=== PATIENT | female | born 1945 | race Caucasian/White ===

== ENCOUNTER 2017-05-15 12:51 | Emergency (ER) | payer MEDICARE, BC ==
[~2017-05-15] VITALS: Ht 170.2 cm; Wt 105.0 kg
[~2017-05-15 12:51] MED LIST: ASPI-119; BUPR150T5 PO; CARB1TAB52 PO; CARB25TA9 PO; CLON0.5T PO; FLUT250A INH; FLUT50SP EACH NARE; OMEGCAP PO; VENL75CA44 PO; VENL75TA PO
[2017-05-15 12:58] VITALS: BP 143/68; PULSE 96; RESP 18; TEMP 98.1; O2SAT 95
[2017-05-15] MEDS ORDERED: CARB25TA16 PO (13:20)
[2017-05-15] MEDS ORDERED: CLON0.5T PO (13:20)
[2017-05-15] MEDS ORDERED: FLUTI220I INH (13:20)
[2017-05-15] MEDS ORDERED: SPIR25TA PO (13:20)
--- NOTE | 2017-05-15 13:56 | RADRPT ---
EXAM DATE/TIME: 05/15/2017 13:19 [facility] COMPARISON: No previous studies available for comparison. INDICATIONS : Left thumb pain MEDICAL HISTORY : Parkinsons disease SURGICAL HISTORY : None. ENCOUNTER: Initial ACUITY: 1 day PAIN SCORE: 9/10 LOCATION: Left Thumb FINDINGS: Osseous structures appear intact without evidence for acute bony fracture. Mild soft tissue prominenc e overlying the first PIP joint. There is anatomic alignment on the single AP view of the first PIP j oint. Remaining views are essentially oblique views of this joint space. Remaining joint spaces are i ntact without significantnarrowing or erosive change. CONCLUSION: 1. Mild soft tissue prominence overlying the first PIP joint without acute fracture or dislocation. Lazaro Millard MD on May 15, 2017 at 13:50 Board Certified Radiologist. This report was verified electronically.
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
== END 2017-05-15 16:15 | disposition home or self-care (01) ==
LOC: PHEFT 12:51
DX: S60.012A Contusion of left thumb without damage to nail, initial encounter (principal); S00.93XA Contusion of unspecified part of head, initial encounter; Y04.2XXA Assault by strike against or bumped into by another person, initial encounter; I10 Essential (primary) hypertension; F32.9 Major depressive disorder, single episode, unspecified; K21.9 Gastro-esophageal reflux disease without esophagitis
CPT/HCPCS: 70450; 72125; 72128; 73130; 99284; L3808

== ENCOUNTER 2017-05-31 20:17 | Emergency (ER) | payer MEDICARE, BC, OTHER ==
[~2017-05-31 20:17] MED LIST changes: -CARB1TAB52 PO; +CARB25TA16 PO; -FLUT250A INH; +FLUTI220I INH; +SPIR25TA PO; -VENL75CA44 PO
[2017-05-31 20:44] VITALS: BP 122/68; PULSE 87; RESP 18; TEMP 98; O2SAT 96
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
[2017-05-31] MEDS ORDERED: CARB25TA9 PO (21:02)
[2017-05-31] MEDS ORDERED: CARB50TA3 PO (21:02)
[2017-05-31 21:48] LABS: AUTOMATED NEUTROPHIL # 3.4 TH/MM3 (1.8-7.7); BASOPHIL # 0.1 TH/MM3 (0-0.2); EOSINOPHIL # 0.4 TH/MM3 (0-0.4); EOSINOPHIL % 6.2 % (0.0-4.0); HEMATOCRIT 40.7 % (35.0-46.0); HEMOGLOBIN 13.9 GM/DL (11.6-15.3); LYMPH % 27.7 % (9.0-44.0); LYMPHOCYTE # 1.7 TH/MM3 (1.0-4.8); MEAN CELL VOLUME 94.8 FL (80.0-100.0); MEAN CORPUSCULAR HEMOGLOBIN 32.5 PG (27.0-34.0); MEAN CORPUSCULAR HGB CONC 34.2 % (32.0-36.0); MEAN PLATELET VOLUME 7.9 FL (7.0-11.0); MONO % 8.4 % (0.0-8.0); MONOCYTE # 0.5 TH/MM3 (0-0.9); NEUT % 56.7 % (16.0-70.0); PLATELET COUNT 230 TH/MM3 (150-450); RED BLOOD COUNT 4.29 MIL/MM3 (4.00-5.30); RED CELL DISTRIBUTION WIDTH 13.4 % (11.6-17.2)
[2017-05-31 23:07] LABS: ALBUMIN 3.7 GM/DL (3.4-5.0); ALT (GPT) 16 U/L (10-53); AST (GOT) 18 U/L (15-37); BICARBONATE 25.2 MEQ/L (21.0-32.0); BLOOD UREA NITROGEN 22 MG/DL (7-18); CALCIUM 8.3 MG/DL (8.5-10.1); CHLORIDE 107 MEQ/L (98-107); GLOMERULAR FILTRATION RATE 83 ML/MIN (>89); GLUCOSE,RANDOM 92 MG/DL (74-106); SODIUM (NA) 142 MEQ/L (136-145)
[2017-05-31 23:10] LABS: ALKALINE PHOSPHATASE 158 U/L (45-117); TOTAL BILIRUBIN ADULT 0.5 MG/DL (0.2-1.0); TOTAL PROTEIN 7.2 GM/DL (6.4-8.2)
[2017-05-31 23:26] LABS: ACETAMINOPHEN LESS THAN 2.0 MCG/ML (10.0-30.0)
[2017-06-01 00:38] LABS: BACTERIA, URINE RARE /hpf; BILIRUBIN, URINE NEG (NEG); BLOOD, URINE NEG (NEG); GLUCOSE,URINE NEG (NEG); KETONE, URINE NEG (NEG); NITRITE,URINE NEG (NEG); PH, URINE 6.5 (5.0-8.5); SQUAMOUS EPITHELIAL CELL URINE 1 /hpf (0-5); URINE COLOR YELLOW (YELLW/STRAW); URINE LEUKOCYTE ESTERASE MOD (NEG)
[2017-06-01 00:39] VITALS: BP 120/62; PULSE 80; RESP 18; O2SAT 96
[2017-06-01] MEDS ORDERED: clonazePAM 0.5 MG TAB PO ONE ×2 (00:45→09:30)
[2017-06-01] MEDS ORDERED: LEVODOPA/CARBIDOPA 1 TAB TABCR PO ONE (00:45)
[2017-06-01] MEDS ORDERED: ACETAMINOPHEN 325 MG TAB PO ONE (03:45)
[2017-06-01 08:51] VITALS: BP 138/70; PULSE 84; RESP 17; TEMP 97.8; O2SAT 98
[2017-06-01] MEDS: LEVODOPA/CARBIDOPA 1 TAB TABCR PO SCH ×2 (09:35→12:51)
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
--- NOTE | 2017-06-01 11:23 | PD ---
Data Data Last Documented VS Vital Signs Date Time Temp Pulse Resp B/P (MAP) Pulse Ox O2 Delivery O2 Flow Rate FiO2 06/01/17 08:51 97.8 84 17 138/70 (92) 98 Room Air Orders Orders Complete Blood Count With Diff (05/31/17 20:47) Comprehensive Metabolic Panel (05/31/17 20:47) Urinalysis - C+S If Indicated (05/31/17 20:47) Psych Screen (05/31/17 20:47) Drug Screen, Random Urine (05/31/17 20:47) Alcohol (Ethanol) (05/31/17 20:47) Salicylates (Aspirin) (05/31/17 20:47) Tylenol (Acetaminophen) (05/31/17 20:47) Clonazepam (Klonopin) (06/01/17 00:45) Carbidopa-Levodopa Cr 50-200mg (Sinemet (06/01/17 00:45) Acetaminophen (Tylenol) (06/01/17 03:45) Diet Regular Basic (06/01/17 Breakfast) Carbidopa-Levodopa Cr 50-200mg (Sinemet (06/01/17 09:15) Clonazepam (Klonopin) (06/01/17 09:30) Labs Laboratory Tests Test 05/31/17 21:15 06/01/17 00:05 White Blood Count 6.0 TH/MM3 Red Blood Count 4.29 MIL/MM3 Hemoglobin 13.9 GM/DL Hematocrit 40.7 % Mean Corpuscular Volume 94.8 FL Mean Corpuscular Hemoglobin 32.5 PG Mean Corpuscular Hemoglobin Concent 34.2 % Red Cell Distribution Width 13.4 % Platelet Count 230 TH/MM3 Mean Platelet Volume 7.9 FL Neutrophils (%) (Auto) 56.7 % Lymphocytes (%) (Auto) 27.7 % Monocytes (%) (Auto) 8.4 % Eosinophils (%) (Auto) 6.2 % Basophils (%) (Auto) 1.0 % Neutrophils # (Auto) 3.4 TH/MM3 Lymphocytes # (Auto) 1.7 TH/MM3 Monocytes # (Auto) 0.5 TH/MM3 Eosinophils # (Auto) 0.4 TH/MM3 Basophils # (Auto) 0.1 TH/MM3 CBC Comment DIFF FINAL Differential Comment Blood Urea Nitrogen 22 MG/DL Creatinine 0.70 MG/DL Random Glucose 92 MG/DL Total Protein 7.2 GM/DL Albumin 3.7 GM/DL Calcium Level 8.3 MG/DL Alkaline Phosphatase 158 U/L Aspartate Amino Transf (AST/SGOT) 18 U/L Alanine Aminotransferase (ALT/SGPT) 16 U/L Total Bilirubin 0.5 MG/DL Sodium Level 142 MEQ/L Potassium Level 3.8 MEQ/L Chloride Level 107 MEQ/L Carbon Dioxide Level 25.2 MEQ/L Anion Gap 10 MEQ/L Estimat Glomerular Filtration Rate 83 ML/MIN Salicylates Level 2.1 MG/DL Acetaminophen Level LESS THAN 2.0 MCG/ML Ethyl Alcohol Level LESS THAN 3 MG/DL Urine Color YELLOW Urine Turbidity CLEAR Urine pH 6.5 Urine Specific [place] 1.010 Urine Protein NEG mg/dL Urine Glucose (UA) NEG mg/dL Urine Ketones NEG mg/dL Urine Occult Blood NEG Urine Nitrite NEG Urine Bilirubin NEG Urine Urobilinogen LESS THAN 2.0 MG/DL Urine Leukocyte Esterase MOD Urine WBC 4 /hpf Urine Squamous Epithelial Cells 1 /hpf Urine Bacteria RARE /hpf Microscopic Urinalysis Comment CULT NOT INDICATED Urine Opiates Screen NEG Urine Barbiturates Screen NEG Urine Amphetamines Screen NEG Urine Benzodiazepines Screen NEG Urine Cocaine Screen NEG Urine Cannabinoids Screen NEG MDM Supervised Visit with [facility]: No Narrative Course I was asked by the psychiatric nurse practitioner to disposition this patient. Patient has been here for 15 hours. She has no medical/physical complaints. Her Chong act is lifted. Psychiatry deems her not a danger to herself or others and she has outpatient follow-up with following day. I reviewed her medical clearance workup. Her labs and urine are normal. Her vital signs are good. She is stable for outpatient follow-up at this time Diagnosis Primary Impression: Suicidal ideation Additional Instruction: The patient was advised to follow up with their physician and return if they worsen. Med/Other Pt SpecificInfo: Other Disposition: DISCHARGE HOME Condition: Stable Jama Huffman MD Jun 01, 2017 11:23
== END 2017-06-01 16:07 | disposition home or self-care (01) ==
LOC: NEPD 20:17
DX: R45.851 Suicidal ideations (principal); F43.23 Adjustment disorder with mixed anxiety and depressed mood; I10 Essential (primary) hypertension; K21.9 Gastro-esophageal reflux disease without esophagitis; J45.909 Unspecified asthma, uncomplicated; Z79.899 Other long term (current) drug therapy; Z88.8 Allergy status to other drugs, medicaments and biological substances
CPT/HCPCS: 80053; 80307; 81001; 85025; 99284

== ENCOUNTER 2017-12-13 17:11 | Inpatient (IN) | payer MEDICARE, BC, OTHER ==
[~2017-12-13] VITALS: Ht 172.7 cm; Wt 94.3 kg
[~2017-12-13 17:11] MED LIST changes: -CARB25TA16 PO; +CARB50TA3 PO
[2017-12-13 17:31] VITALS: BP 135/63; PULSE 94; RESP 18; TEMP 99.7; O2SAT 99
[2017-12-13] MEDS ORDERED: MORPHINE SULFATE 2 MG/ML SYRINGE IM ONE (17:45)
[2017-12-13] MEDS ORDERED: ACETAMINOPHEN/HYDROcodone 325 MG/5 MG TAB PO ONE (18:15)
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
[2017-12-13] MEDS ORDERED: LORazepam 1 MG TAB PO ONE (18:45)
[2017-12-13 19:14] LABS: BASOPHIL # 0.1 TH/MM3 (0-0.2); BASOPHIL % 0.7 % (0.0-2.0); EOSINOPHIL # 0.6 TH/MM3 (0-0.4); EOSINOPHIL % 7.8 % (0.0-4.0); HEMATOCRIT 41.5 % (35.0-46.0); LYMPH % 20.4 % (9.0-44.0); LYMPHOCYTE # 1.6 TH/MM3 (1.0-4.8); MEAN CELL VOLUME 92.9 FL (80.0-100.0); MEAN CORPUSCULAR HEMOGLOBIN 31.3 PG (27.0-34.0); MEAN CORPUSCULAR HGB CONC 33.8 % (32.0-36.0); MEAN PLATELET VOLUME 7.5 FL (7.0-11.0); MONO % 6.1 % (0.0-8.0); MONOCYTE # 0.5 TH/MM3 (0-0.9); PLATELET COUNT 244 TH/MM3 (150-450); RED BLOOD COUNT 4.46 MIL/MM3 (4.00-5.30); RED CELL DISTRIBUTION WIDTH 13.2 % (11.6-17.2); WHITE BLOOD COUNT 7.7 TH/MM3 (4.0-11.0)
[2017-12-13 19:33] LABS: ALBUMIN 3.7 GM/DL (3.4-5.0); AST (GOT) 19 U/L (15-37); BICARBONATE 25.9 MEQ/L (21.0-32.0); BLOOD UREA NITROGEN 17 MG/DL (7-18); CALCIUM 8.9 MG/DL (8.5-10.1); CHLORIDE 104 MEQ/L (98-107); CREATININE 0.76 MG/DL (0.50-1.00); GLOMERULAR FILTRATION RATE 75 ML/MIN (>89); GLUCOSE,RANDOM 86 MG/DL (74-106); SODIUM (NA) 140 MEQ/L (136-145)
[2017-12-13 19:34] LABS: ALT (GPT) 27 U/L (10-53)
[2017-12-13 19:44] LABS: ALKALINE PHOSPHATASE 164 U/L (45-117); TOTAL BILIRUBIN ADULT 0.3 MG/DL (0.2-1.0); TOTAL PROTEIN 7.2 GM/DL (6.4-8.2)
[2017-12-13 19:49] LABS: ACETAMINOPHEN LESS THAN 2.0 MCG/ML (10.0-30.0)
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
[2017-12-13 23:35] VITALS: BP 119/77; PULSE 76; RESP 16; TEMP 98.1; O2SAT 99
[2017-12-14] MEDS ORDERED: LEVODOPA/CARBIDOPA 1 TAB TABCR PO ONE
[2017-12-14] MEDS ORDERED: clonazePAM 0.5 MG TAB PO ONE
[2017-12-14] MEDS ORDERED: ACETAMINOPHEN/HYDROcodone 325 MG/5 MG TAB PO ONE (02:00)
[2017-12-14 05:43] VITALS: BP 120/61; PULSE 76; RESP 15; TEMP 97.7; O2SAT 95
[2017-12-14] MEDS ORDERED: LORazepam 1 MG TAB PO PRN (09:45)
[2017-12-14] MEDS ORDERED: LORazepam 0.5 MG TAB PO PRN (09:45)
[2017-12-14] MEDS ORDERED: ALUMINUM/MAGNESIUM/SIMETH 30 ML CUP PO PRN (09:45)
[2017-12-14] MEDS ORDERED: ACETAMINOPHEN 325 MG TAB PO PRN (09:45)
[2017-12-14] MEDS ORDERED: LORazepam 2 MG/ML VIAL IM PRN ×2 (09:45)
[2017-12-14] MEDS ORDERED: MAGNESIUM HYDROXIDE SUSP 30 ML CUP PO PRN (09:45)
[2017-12-14] MEDS ORDERED: buPROPion HCL 150 MG SUSTAINED RELEASE TAB PO SCH (11:00)
[2017-12-14] MEDS ORDERED: NON-FORMULARY DRUG (Fish Oil-Cholecalciferol (Omega-3 Fish Oil/Vitamin) 1 CAP) PO SCH (11:00)
[2017-12-14] MEDS ORDERED: PILL SPLITTER OTHER PRN (12:00)
[2017-12-14] MEDS: VENLAFAXINE HCL 75 MG TAB PO SCH (12:41)
[2017-12-14] MEDS: CARBIDOPA/LEVODOPA 25 MG/100 MG TAB PO SCH ×2 (12:41→17:02)
[2017-12-14] MEDS: QUEtiapine FUMARATE 25 MG TAB PO SCH (12:42)
[2017-12-14] MEDS: clonazePAM 0.5 MG TAB PO SCH ×3 (12:42→22:16)
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
[2017-12-14 18:52] VITALS: BP 152/70; PULSE 86; RESP 18; TEMP 97.3; O2SAT 97
[2017-12-14] MEDS ORDERED: LEVODOPA/CARBIDOPA 1 TAB TABCR PO SCH (21:00)
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
[2017-12-15 06:00] VITALS: BP 121/56; PULSE 87; RESP 18; TEMP 97.6; O2SAT 94
--- NOTE | 2017-12-15 07:44 | HHI.PR ---
Objective Vital Signs Date Time Temp Pulse Resp B/P (MAP) Pulse Ox O2 Delivery O2 Flow Rate FiO2 12/15/17 06:00 97.6 87 18 121/56 (77) 94 12/14/17 18:52 97.3 86 18 152/70 (97) 97 I/O 12/14/17 12/14/17 12/14/17 12/15/17 12/15/17 12/15/17 07:00 15:00 23:00 07:00 15:00 23:00 Intake Total 100 ml 0 ml Balance 100 ml 0 ml Intake Oral 100 ml 0 ml # Voids 1 Result Diagram: 12/13/17183912/[id number]/171839 Objective Remarks awake alert gait fine minimal tremor oriented Assessment and Plan Assessment and Plan imp fu mri eeg and labs i dced noc sinmet and changed to 1 tid watch gait will fu monday if still here ow fu office dr powell next week Butch López MD December 15, 2017 07:44
[2017-12-15] MEDS: NICOTINE 21 MG/24 HR PATCH T-DERMAL SCH (09:00)
[2017-12-15 09:56] LABS: BICARBONATE 28.8 MEQ/L (21.0-32.0); BLOOD UREA NITROGEN 18 MG/DL (7-18); CALCIUM 8.8 MG/DL (8.5-10.1); CHLORIDE 105 MEQ/L (98-107); CREATININE 0.82 MG/DL (0.50-1.00); GLOMERULAR FILTRATION RATE 69 ML/MIN (>89); GLUCOSE,RANDOM 114 MG/DL (74-106); SODIUM (NA) 142 MEQ/L (136-145)
[2017-12-15 09:57] LABS: CHOLESTEROL 211 MG/DL (120-200); TRIGLYCERIDES 123 MG/DL (42-150)
[2017-12-15 10:09] LABS: RHEUMATOID FACTOR SCREEN NEGATIVE (NEGATIVE)
[2017-12-15 10:22] LABS: CHOLESTEROL/ HDL RATIO 4.44 RATIO; HDL CHOLESTEROL 47.5 MG/DL (40.0-60.0); LDL CHOLESTEROL 139 MG/DL (0-99)
[2017-12-15] MEDS: CARBIDOPA/LEVODOPA 25 MG/100 MG TAB PO SCH ×3 (10:29→16:16)
[2017-12-15] MEDS: VENLAFAXINE HCL 75 MG TAB PO SCH (10:30)
[2017-12-15] MEDS: clonazePAM 0.5 MG TAB PO SCH ×2 (10:30→13:26)
[2017-12-15] MEDS: QUEtiapine FUMARATE 25 MG TAB PO SCH ×2 (10:30→13:26)
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
[2017-12-15 16:45] LABS: HEMOGLOBIN A1C 5.4 % (4.3-6.0)
[2017-12-15 17:30] VITALS: BP 126/65; PULSE 71; RESP 16; TEMP 97.6; O2SAT 97
[2017-12-15] MEDS: clonazePAM 1 MG TAB PO SCH (17:46)
--- NOTE | 2017-12-15 17:52 | RADRPT ---
EXAM DATE/TIME: 12/15/2017 17:11 [facility] COMPARISON: No previous studies available for comparison. INDICATIONS : Hallucinations. Psychosis. CONTRAST: 18 cc Omniscan (gadodiamide) IV MEDICAL HISTORY : Parkinson's. Dementia. SURGICAL HISTORY : Appendectomy. Right ankle, right knee, bladder sling. ENCOUNTER: Initial ACUITY: 1 day PAIN SCORE: 0/10 LOCATION: cranial TECHNIQUE: Multiplanar, multisequence MRI of the brain was performed both prior to and following the administrat ion of paramagnetic contrast. FINDINGS: CEREBRUM: The ventricles are normal for age. No evidence of midline shift, mass lesion, hemorrhage or acute in farction. No extraaxial fluid collections are seen. The pituitary gland and suprasellar cistern are normal in configuration. WHITE MATTER: Minimal signal abnormalities are seen in the white matter. POSTERIOR FOSSA: The cerebellum and brainstem are intact. The 4th ventricle is midline. The cerebellopontine angle is unremarkable. The cerebellar tonsils are normal in position. DIFFUSION IMAGING: No focal areas of restricted diffusion are seen. No evidence of acute infarction. EXTRACRANIAL: The visualized portions of the orbits and paranasal sinuses are unremarkable. POST-CONTRAST: No abnormal areas of parenchymal or dural enhancement. No evidence of blood-brain barrier breakdown. CONCLUSION: 1. Examination within normal limits for age. No abnormal enhancement. Minimal white matter ischemic c sammies. Yefri Rojas MD on December 15, 2017 at 17:47 Board Certified Radiologist. This report was verified electronically.
[2017-12-15] MEDS ORDERED: GADODIAMIDE PF 287 MG/ML 20 ML VIAL (for RAD MRI) IVCONTRAST ONE (19:25)
[2017-12-16 06:00] VITALS: BP 132/61; PULSE 78; RESP 16; TEMP 97.5; O2SAT 93
[2017-12-16] MEDS: CARBIDOPA/LEVODOPA 25 MG/100 MG TAB PO SCH ×3 (08:43→16:25)
[2017-12-16] MEDS: QUEtiapine FUMARATE 25 MG TAB PO SCH ×2 (09:00→12:00)
[2017-12-16] MEDS: NICOTINE 21 MG/24 HR PATCH T-DERMAL SCH (09:00)
[2017-12-16] MEDS: VENLAFAXINE HCL 75 MG TAB PO SCH (09:48)
[2017-12-16] MEDS: clonazePAM 1 MG TAB PO SCH ×3 (09:48→18:14)
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
[2017-12-16 16:30] VITALS: BP 127/60; PULSE 83; RESP 16; TEMP 97.7; O2SAT 95
[2017-12-17 06:15] VITALS: BP 126/59; PULSE 75; RESP 16; TEMP 97.7; O2SAT 92
[2017-12-17] MEDS: CARBIDOPA/LEVODOPA 25 MG/100 MG TAB PO SCH ×3 (08:18→16:04)
[2017-12-17] MEDS: NICOTINE 21 MG/24 HR PATCH T-DERMAL SCH (09:00)
[2017-12-17] MEDS: QUEtiapine FUMARATE 25 MG TAB PO SCH ×2 (09:00→12:00)
[2017-12-17] MEDS: VENLAFAXINE HCL 75 MG TAB PO SCH (09:13)
[2017-12-17] MEDS: clonazePAM 1 MG TAB PO SCH ×3 (09:14→18:27)
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
[2017-12-17 17:59] VITALS: BP 132/64; PULSE 87; RESP 18; TEMP 98; O2SAT 98
[2017-12-18 05:29] VITALS: BP 144/72; PULSE 79; RESP 16; TEMP 97.3; O2SAT 96
[2017-12-18] MEDS: NICOTINE 21 MG/24 HR PATCH T-DERMAL SCH (09:00)
[2017-12-18] MEDS: QUEtiapine FUMARATE 25 MG TAB PO SCH ×2 (09:09→11:57)
[2017-12-18] MEDS: VENLAFAXINE HCL 75 MG TAB PO SCH (09:09)
[2017-12-18] MEDS: CARBIDOPA/LEVODOPA 25 MG/100 MG TAB PO SCH ×3 (09:09→16:12)
[2017-12-18] MEDS: clonazePAM 1 MG TAB PO SCH ×3 (09:09→17:28)
--- NOTE | 2017-12-18 09:48 | HHI.PR ---
Subjective Remarks DENIES HALLUCINATIONS Objective Vital Signs Date Time Temp Pulse Resp B/P (MAP) Pulse Ox O2 Delivery O2 Flow Rate FiO2 12/18/17 05:29 97.3 79 16 144/72 (96) 96 12/17/17 17:59 98.0 87 18 132/64 (86) 98 I/O 12/17/17 12/17/17 12/17/17 12/18/17 12/18/17 12/18/17 07:00 15:00 23:00 07:00 15:00 23:00 Intake Total 840 ml 600 ml 240 ml Balance 840 ml 600 ml 240 ml Intake Oral 840 ml 600 ml 240 ml # Voids 1 3 Result Diagram: 12/15/17 0855 Objective Remarks awake alert ox3 gait fine dances around nl movement not bradykinetic no tremor Assessment and Plan Assessment and Plan imp fu mri eeg and labs all neg so far i dced noc sinemet and changed to 1 tid pd pham looks great fu office dr [place] next week Butch López MD December 18, 2017 09:48
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
[2017-12-18 18:13] VITALS: BP 99/53; PULSE 77; RESP 16; TEMP 98.3; O2SAT 95
[2017-12-19 05:40] VITALS: BP 122/60; PULSE 81; RESP 17; TEMP 97.4; O2SAT 93
[2017-12-19] MEDS: CARBIDOPA/LEVODOPA 25 MG/100 MG TAB PO SCH (08:14)
[2017-12-19] MEDS: QUEtiapine FUMARATE 25 MG TAB PO SCH (08:15)
[2017-12-19] MEDS: clonazePAM 1 MG TAB PO SCH (08:15)
[2017-12-19] MEDS: VENLAFAXINE HCL 75 MG TAB PO SCH (08:15)
[2017-12-19] MEDS: NICOTINE 21 MG/24 HR PATCH T-DERMAL SCH (08:15)
[2017-12-19] MEDS ORDERED: VENLAFAXINE HCL 37.5 MG TAB PO SCH (09:00)
[2017-12-19] MEDS ORDERED: VENL75TA PO (09:59)
[2017-12-19] MEDS ORDERED: CLON1 PO (09:59)
[2017-12-19] MEDS ORDERED: Carbidopa-Levodopa 25-100 Mg PO (09:59)
[2017-12-19] MEDS ORDERED: SERO25TA PO (09:59)
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
[2017-12-19 12:55] LABS: METHYLMALONIC ACID 0.44 nmol/mL (<=0.40)
[2017-12-19] MEDS ORDERED: QUEtiapine FUMARATE 25 MG TAB PO SCH (21:00)
[2017-12-20 15:52] LABS: ANA PATTERN DIFFUSE
== END 2017-12-19 11:35 | disposition home or self-care (01) | DRG 885 ==
LOC: NEPD 17:11 → NEDA 12-14 09:43 → H4EA 12-14 14:05
PROVIDERS: ADMIT Student in an Organized Health Care Education/Training Program; ATTEND Student in an Organized Health Care Education/Training Program
DX: F29 Unspecified psychosis not due to a substance or known physiological condition (principal); G20 Parkinson's disease; F03.90 Unspecified dementia, unspecified severity, without behavioral disturbance, psychotic disturbance, mood disturbance, and anxiety; G89.29 Other chronic pain; M54.5 Low back pain; M19.90 Unspecified osteoarthritis, unspecified site; R26.9 Unspecified abnormalities of gait and mobility; F32.9 Major depressive disorder, single episode, unspecified; F41.9 Anxiety disorder, unspecified; Z79.899 Other long term (current) drug therapy; Z79.82 Long term (current) use of aspirin
CPT/HCPCS: 70553; 80048; 80053; 80061; 80307; 82607; 82746; 83036; 83921; 84425; 84439; 84443; 85025; 85652; 86038; 86039; 86430; 86592; 95819; 99285; A9579